=== PATIENT | male | born 1950 | race Caucasian/White ===

== ENCOUNTER 2017-04-03 10:39 | Outpatient (CLI) | payer BC, MEDICARE ==
[2017-05-05 15:56] LABS: TEST RESULT REPORT (())
== END 2017-04-03 23:59 ==
LOC: LAB.WCP 10:39
PROVIDERS: ATTEND Family Medicine
DX: R21 Rash and other nonspecific skin eruption (principal)
CPT/HCPCS: 81599; 87101; 87220

== ENCOUNTER 2017-05-08 11:09 | Outpatient (CLI) | payer MEDICARE ==
[2017-05-08 19:06] LABS: BASOPHILS % (AUTO) 0.2 %; EOSINOPHILS # (AUTO) 0.1 10^3/uL (0.0-0.7); HCT - HEMATOCRIT 42.8 % (42.0-52.0); HGB - HEMOGLOBIN 14.4 g/dL (14.0-18.0); LYMPHOCYTES # (AUTO) 2.4 10^3/uL (1.5-3.5); LYMPHOCYTES % (AUTO) 25.6 %; MEAN CORPUSCULAR HEMOGLOBIN 32.3 pg (27.0-31.0); MEAN CORPUSCULAR HGB CONC 33.6 g/dL (32.0-36.0); MEAN PLATELET VOLUME 7.2 fL (7.4-11.4); MONOCYTES # (AUTO) 0.6 10^3/uL (0.0-1.0); MONOCYTES % (AUTO) 6.5 %; NEUTROPHILS # (AUTO) 6.1 10^3/uL (1.5-6.6); NEUTROPHILS % (AUTO) 66.7 %; NUCLEATED RED BLOOD CELLS AUTO 0.1 /100WBC; RED BLOOD COUNT 4.46 10^6/uL (4.70-6.10); RED CELL DISTRIBUTION WIDTH 13.3 % (12.0-15.0); UNCORRECTED WHITE BLOOD COUNT 9.2 x10^3/uL; WHITE BLOOD COUNT 9.2 x10^3/uL (4.8-10.8)
[2017-05-08 19:21] LABS: ALBUMIN/GLOBULIN RATIO 1.5 (1.0-2.2); BILIRUBIN,TOTAL 0.5 mg/dL (0.2-1.0); BUN - BLOOD UREA NITROGEN 10 mg/dL (6-20); CALCIUM 9.5 mg/dL (8.5-10.3); CARBON DIOXIDE - CO2 30 mmol/L (21-32); CHLORIDE 94 mmol/L (101-111); CREATININE 0.8 mg/dL (0.6-1.2); GFR - MDRD 96 (>89); GLUCOSE 94 mg/dL (70-100); POTASSIUM 4.1 mmol/L (3.5-5.0); SODIUM 129 mmol/L (135-145); TOTAL PROTEIN 6.9 g/dL (6.7-8.2)
[2017-05-08 20:27] LABS: THYROID STIMULATING HORMONE < 0.08 uIU/mL (0.34-5.60)
== END 2017-05-08 11:10 | disposition home or self-care (01) ==
LOC: LAB.WCP 11:09
PROVIDERS: ATTEND Family Medicine
DX: E03.9 Hypothyroidism, unspecified (principal); L50.8 Other urticaria; R21 Rash and other nonspecific skin eruption
CPT/HCPCS: 36415; 80053; 84439; 84443; 85025

== ENCOUNTER 2017-06-26 08:00 | Outpatient (CLI) | payer MEDICARE ==
[2017-06-26 19:37] LABS: BUN - BLOOD UREA NITROGEN 7 mg/dL (6-20); CALCIUM 9.5 mg/dL (8.5-10.3); CARBON DIOXIDE - CO2 28 mmol/L (21-32); CHLORIDE 94 mmol/L (101-111); CREATININE 0.8 mg/dL (0.6-1.2); GFR - MDRD 96 (>89); GLUCOSE 90 mg/dL (70-100); POTASSIUM 4.6 mmol/L (3.5-5.0); SODIUM 130 mmol/L (135-145)
[2017-06-26 20:12] LABS: THYROID STIMULATING HORMONE 0.12 uIU/mL (0.34-5.60)
== END 2017-06-26 08:01 | disposition home or self-care (01) ==
LOC: LAB.WCP 08:00
PROVIDERS: ATTEND Family Medicine
DX: E87.1 Hypo-osmolality and hyponatremia (principal); E03.9 Hypothyroidism, unspecified
CPT/HCPCS: 36415; 80048; 84439; 84443

== ENCOUNTER 2017-07-17 10:45 | Outpatient (CLI) | payer MEDICARE ==
--- NOTE | 2017-07-17 11:57 | CT Report ---
CT CHEST WITHOUT CONTRAST FOR LUNG CANCER SCREENIN07/17/2017 CLINICAL INDICATION: A 67-year-old asymptomatic patient with [id number] history of smoking, curren t smoker. COMPARISON: CT chest 04/12/2015. TECHNIQUE: Axial CT images of the chest were obtained without intravenous contrast, using low-dose s creening technique. In accordance with CT protocol optimization, one or more of the following dose reduction techniques w ere utilized for this exam: automated exposure control, adjustment of mA and/or KV based on patient size, or use of iterative reconstructive technique. FINDINGS: The heart and great vessels demonstrate mild atherosclerotic calcification. No hilar or m ediastinal lymphadenopathy is present. There is a 3-mm left apical nodule present, and a 4-mm nodule in the anterior right middle lobe (axial lung window images 23 and 94 respectively). These are stab le from previous. No effusion or pneumothorax is present. Limited evaluation of upper abdominal str uctures demonstrates normal adrenal glands. IMPRESSION: BENIGN FINDINGS. RECOMMENDATION: Continue annual screening with low-dose chest CT in 12 months. LUNG-RADS CATEGORY 2 - BENIGN APPEARANCE. JOB #: [id number] EXT JOB #:[id number]
== END 2017-07-17 10:46 | disposition home or self-care (01) ==
LOC: DI 10:45
PROVIDERS: ATTEND Family Medicine
DX: Z12.2 Encounter for screening for malignant neoplasm of respiratory organs (principal); F17.210 Nicotine dependence, cigarettes, uncomplicated

== ENCOUNTER 2017-09-03 11:10 | Outpatient (CLI) | payer MEDICARE ==
[2017-09-03 18:57] LABS: CALCIUM 9.3 mg/dL (8.5-10.3); CREATININE 0.9 mg/dL (0.6-1.2); POTASSIUM 4.5 mmol/L (3.5-5.0)
[2017-09-03 19:14] LABS: THYROID STIMULATING HORMONE 12.03 uIU/mL (0.34-5.60)
== END 2017-09-03 11:11 | disposition home or self-care (01) ==
LOC: LAB.WCP 11:10
PROVIDERS: ATTEND Family Medicine
DX: E87.1 Hypo-osmolality and hyponatremia (principal); E03.9 Hypothyroidism, unspecified
CPT/HCPCS: 36415; 80048; 84439; 84443

== ENCOUNTER 2017-10-13 08:00 | Outpatient (CLI) | payer MEDICARE | END 2017-10-13 08:01 | disposition home or self-care (01) | LOC: LAB.R 08:00 | PROVIDERS: ATTEND Family Medicine | DX: R19.7 Diarrhea, unspecified (principal) | CPT/HCPCS: 87045; 87046; 87177; 87209; 87493 ==

== ENCOUNTER 2018-01-11 11:37 | Day surgery (SDC) | payer MEDICARE ==
[2018-01-11] MEDS ORDERED: LACTATED RINGERS 1,000 ML IV ONE ×3 (12:01→14:00)
[2018-01-11] MEDS ORDERED: MIDAZOLAM 2 MG/2 ML VIAL IVP ONE (12:28)
[2018-01-11] MEDS ORDERED: fentaNYL 100 MCG/2 ML VIAL IVP ONE (12:28)
--- NOTE | 2018-01-11 12:31 | SURGERY HX AND PHYSICAL(T) ---
Surgical History & Physical - PMH/PSH/Social Hx Does the pt have a hx of MRSA?: No Eyes, Ears, Nose, Throat: None Cardiovascular: None Respiratory: COPD Skin: None Endocrine/Autoimmune: HyPOthyroidism Gastrointestinal: None Urinary: None Musculoskeletal: Osteoarthritis Psychiatric: None Orthopedic: Arthroscopic surgery Eyes Ears Nose Throat (EENT): Tonsil/Adenoidectomy - Home Meds and Allergies Home Medications: Levothyroxine [Synthroid] 125 mcg PO QDAC 01/08/18 hydrOXYzine HCl [Hydroxyzine HCl] 10 mg PO BID PRN 01/08/18 raNITIdine [Zantac] 150 mg PO DAILY PRN 01/08/18 Loratadine [Allergy] 1 BID 01/11/18 Allergies/Adverse Reactions: Allergies Allergy/AdvReac Type Severity Reaction Status Date / Time Sulfa (Sulfonamide Allergy Unknown Verified 01/08/18 13:37 Antibiotics) - Vital Signs Temperature: 36.3 C Respiratory Rate: 18 O2 Saturation: 98 Weight (kg): 63.9 kg Height: 1.68 m - Patient Review Patient Review: Problems were reviewed with the patient during this visit. Medications were reviewed with the patient during this visit. Allergies were reviewed this patient during this visit. Pertinent Tests Reviewed: All pertitent test for this patient were reviewed. - Assessment & Plan Assessment and Plan: The patient was initially seen on December 09, 2017 for the very same reason and for unknown reasons was scheduled more than 30 days later. Because of this an updated H&P is required. Dr. Gianluca Baird initially sent this very pleasant 67 year-old male to my office in consultation for a follow up on polyps. He describes his bowel movements as regular and normal. He denies nausea, vomiting, constipation, diarrhea, melena, hematochezia, hematemesis, abdominal pain, unexplained weight loss, or change in the color, character or caliber of his stool. His previous colonoscopy was performed November 24, [address] Marshall Andrew and 5 separate polyps were removed between 15 and 25 cm from the anal verge. Dr. Marshall Andrew did not make a habit of recording how much medication was used during the procedure. The polyps were all hyperplastic with one being benign colonic mucosa without pathologic change. Current Allergies: SULFA (Critical) Current Medications: SUPREP BOWEL PREP KIT 17.5-3.13-1.6 GM/180ML ORAL SOLUTION (NA SULFATE-K SULFATE -MG SULF) Take one (6oz) bottle by mouth the PM before colonoscopy & one (6oz) bottle by mouth the AM of colonoscopy as directed by surgical clinic LOMOTIL 2.5-0.025 MG ORAL TABLET (DIPHENOXYLATE-ATROPINE) Take one tablet by mouth now then one tablet every six hours as needed for diarrhea RANITIDINE HCL 150 MG ORAL TABLET (RANITIDINE HCL) take two tablet by mouth every evening MONTELUKAST SODIUM 10 MG ORAL TABLET (MONTELUKAST SODIUM) Take one tablet by mouth daily HYDROXYZINE HCL 25 MG ORAL TABLET (HYDROXYZINE HCL) Take one tablet by mouth three times daily as needed for itch LOTRISONE 1-0.05 % EXTERNAL CREAM (CLOTRIMAZOLE-BETAMETHASONE) Apply to affected area twice daily LEVOTHYROXINE SODIUM 125 MCG ORAL TABLET (LEVOTHYROXINE SODIUM) Take one tablet by mouth daily Past Medical History: Hypothyroidism Rash (ICD-782.1) (JAY05-V23) Lumbar radiculopathy, right (ICD-724.4) (EMG03-R92.16) Pulmonary nodule (ICD-518.89) (SEM11-Q88.4) COPD (ICD-496) (FVD53-C19.9) CHRONIC OBSTRUCTIVE PULMONARY DISEASE, ACUTE EXACERBATION (ICD-491.21) ( HAL52-H61.1) DEGENERATIVE JOINT DISEASE, LEFT KNEE (ICD-715.96) (NDZ03-W33.9) DYSLIPIDEMIA (ICD-272.9) (YEW33-E53.9) RETINAL HEMORRHAGE (ICD-362.81) (MZF74-F69.60) ERECTILE DYSFUNCTION (ICD-302.72) (ZRU45-B02.21) TOBACCO ABUSE (ICD-305.1) (TKG01-W05.200) Current Problems: Skin lesion, abnormal (ICD-709.9) (EDC01-E24.9) Rash (ICD-782.1) (KOX41-X35) Lumbar radiculopathy, right (ICD-724.4) (ZAK79-S30.16) Pulmonary nodule (ICD-518.89) (HJR95-I04.4) COPD (ICD-496) (QXW13-L41.9) CHRONIC OBSTRUCTIVE PULMONARY DISEASE, ACUTE EXACERBATION (ICD-491.21) ( TBS62-S40.1) HYPOTHYROIDISM NOS (ICD-244.9) (ZFD06-B00.9) DEGENERATIVE JOINT DISEASE, LEFT KNEE (ICD-715.96) (UBM46-P38.9) DYSLIPIDEMIA (ICD-272.9) (WUH91-X63.9) RETINAL HEMORRHAGE (ICD-362.81) (ZSK14-J24.60) ERECTILE DYSFUNCTION (ICD-302.72) (DDQ35-C50.21) TOBACCO ABUSE (ICD-305.1) (VUA40-P75.200) Shortness of Breath Emphysema Past Surgical History: Knee Surgery Family History Summary: Father (biol.) - Has a father - Entered On: 03/22/2015 General Comments - FH: Mother, sister: Crohn's disease. No colon cancer. Father: 83, AD, assisted living, heart dis, DM Mother: age 67, colon cancer, unknown blood disorder Siblings: 2 sisters, 1 brother Risk Factors: Smoked Tobacco Use: Current every day smoker Cigarettes: Yes -- 1 pack(s) per day, Counseled to quit/cut down: yes Drug use: no Alcohol use: yes Drinks per day: 2-3 Exercise: yes Times per week: 3-5 Type of Exercise: Work Previous Tobacco Use: Signed On - 10/09/2017 Smoked Tobacco Use: Former smoker Cigarettes: Yes -- 1 1/2 pack(s) per day, Year started: less then a pack a day Years smoked: 45 Year quit: 2014 Years Since Last Quit: 3 years, 2 months, 24 days Cigars: Yes Smokeless Tobacco Use: Never Passive smoke exposure: no Drug use: no HIV high-risk behavior: no Caffeine use: 4 drinks per day Review of Systems CONSTITUTIONAL: No weight loss, fever, chills, weakness or fatigue. HEENT: Eyes: No visual loss, blurred vision, double vision or yellow sclerae. Ears, Nose, Throat: No hearing loss, sneezing, congestion, runny nose or sore throat. SKIN: No rash or itching. CARDIOVASCULAR: No chest pain, chest pressure or chest discomfort. No palpitations or edema. RESPIRATORY: No shortness of breath, cough or sputum. GASTROINTESTINAL: No anorexia, nausea, vomiting or diarrhea. No abdominal pain or blood. GENITOURINARY: No dysuria. POSITIVE impotence. NEUROLOGICAL: No headache, dizziness, syncope, paralysis, ataxia, numbness or tingling in the extremities. No change in bowel or bladder control. MUSCULOSKELETAL: No muscle, back pain, joint pain or stiffness. HEMATOLOGIC: No anemia, bleeding or bruising. LYMPHATICS: No enlarged nodes. No history of splenectomy. PSYCHIATRIC: No history of depression or anxiety. ENDOCRINOLOGIC: No reports of sweating, cold or heat intolerance. No polyuria or polydipsia. ALLERGIES: No history of asthma, hives, eczema or rhinitis. Physical Exam General: 67-year old male, appears stated age, well developed, well nourished, evaluated in Room 4 at [facility] ambulatory surgery department HEENT: Normocephalic, atraumatic, extraocular movement intact, mucous membranes pink and moist, sclera anicteric and not injected, graying hair Neck: Supple without pain on palpation, mass or bruit Cardiac: Regular rate and rhythm without rub, gallop, or murmur Chest: Clear to auscultation bilaterally Abdomen: Soft, nontender, normoactive bowel sounds, no hepatomegaly, no splenomegaly Genitourinary: Deferred Rectal: Deferred until colonoscopy Extremities: No gross neurovascular problem, no clubbing, cyanosis or edema Gait: No gross motor deficit Psychiatric: Alert and oriented to person place and time, asks and answers questions appropriately, mood and affect appropriate Impression & Recommendations: Screening colonoscopy with possible biopsies and/or polypectomies. Indications , procedure, alternatives (such as barium enema, Cologuard and even no procedure at all) and risks including but not limited to perforation requiring operative repair, bleeding with its risks, and were fully explained to him. In the office, I sophia diagrams explaining the colonic anatomy and the proposed procedure and handed it to him. In the office, conscious sedation was discussed at length with him as were its risks including but not limited to loss of airway, aspiration, respiratory depression, and not enough relief of pain and anxiety and he indicated that he wished to have conscious sedation for his procedure. In the office, I explained that MAC anesthesia is associated with a higher incidence of colon perforation. Review of his history does not reveal any significant systemic disease that would contraindicate use of conscious sedation or MAC anesthesia. All questions were fully answered. Verbal and written consent was obtained. The patient in preparation for his colonoscopy has been n.p.o. and his colon has been mechanically prepped. 20 minutes of [id number] time spent with the patient the majority of which was spent in discussion and in the generation of this document
[2018-01-11 14:03] VITALS: BP 120/78
== END 2018-01-11 11:38 | disposition home or self-care (01) ==
LOC: SDS 11:37
PROVIDERS: ATTEND Surgery
PROC: 0DBL8ZX Excision of Transverse Colon, Via Natural or Artificial Opening Endoscopic, Diagnostic (ICD-10-PCS; principal; 2018-01-11 12:45)
DX: Z12.11 Encounter for screening for malignant neoplasm of colon (principal); D12.3 Benign neoplasm of transverse colon; K64.8 Other hemorrhoids; E03.9 Hypothyroidism, unspecified; J44.9 Chronic obstructive pulmonary disease, unspecified; E78.5 Hyperlipidemia, unspecified; Z87.891 Personal history of nicotine dependence
CPT/HCPCS: 45385; J7120

== ENCOUNTER 2019-04-28 08:00 | Outpatient (CLI) | payer MEDICARE ==
[2019-04-28 12:32] LABS: BASOPHILS # (AUTO) 0.1 10^3/uL (0.0-0.1); BASOPHILS % (AUTO) 1.1 %; EOSINOPHILS # (AUTO) 0.5 10^3/uL (0.0-0.7); EOSINOPHILS % (AUTO) 5.9 %; LYMPHOCYTES # (AUTO) 1.9 10^3/uL (1.5-3.5); LYMPHOCYTES % (AUTO) 21.6 %; MEAN CORPUSCULAR HEMOGLOBIN 33.3 pg (27.0-31.0); MEAN CORPUSCULAR HGB CONC 34.3 g/dL (32.0-36.0); MEAN CORPUSCULAR VOLUME 97.1 fL (80.0-94.0); MONOCYTES # (AUTO) 0.7 10^3/uL (0.0-1.0); MONOCYTES % (AUTO) 8.1 %; NEUTROPHILS # (AUTO) 5.6 10^3/uL (1.5-6.6); NEUTROPHILS % (AUTO) 62.9 %; PLT - PLATELET COUNT 320 10^3/uL (130-450); RED CELL DISTRIBUTION WIDTH 12.3 % (12.0-15.0)
[2019-04-28 12:42] LABS: ALBUMIN 4.6 g/dL (3.2-5.5); ALBUMIN/GLOBULIN RATIO 1.5 (1.0-2.2); ALKALINE PHOSPHATASE 50 IU/L (42-121); ALT ALANINE AMINOTRANSFERASE 18 IU/L (10-60); AST ASPARTATE AMINOTRANSFERASE 30 IU/L (10-42); BILIRUBIN,TOTAL 0.4 mg/dL (0.2-1.0); BUN - BLOOD UREA NITROGEN 8 mg/dL (6-20); CALCIUM 9.5 mg/dL (8.5-10.3); CARBON DIOXIDE - CO2 26 mmol/L (21-32); CHLORIDE 93 mmol/L (101-111); CHOL/HDL RATIO 2.5 (<5.0); CHOLESTEROL 210 mg/dL; CREATININE 0.7 mg/dL (0.6-1.2); GFR - MDRD 112 (>89); GLUCOSE 104 mg/dL (70-100); HDL CHOLESTEROL 83 mg/dL; LDL CHOLESTEROL,CALCULATED 111 mg/dL; LDL/HDL RATIO 1.3 (<3.6); SODIUM 131 mmol/L (135-145); TOTAL PROTEIN 7.6 g/dL (6.7-8.2); VLDL CHOLESTEROL 16 mg/dL
== END 2019-04-28 23:59 | disposition home or self-care (01) ==
LOC: LAB.WCP 08:00
PROVIDERS: ATTEND Family Medicine
DX: E87.1 Hypo-osmolality and hyponatremia (principal); E78.5 Hyperlipidemia, unspecified; E03.9 Hypothyroidism, unspecified
CPT/HCPCS: 36415; 80053; 80061; 83721; 84443; 85025

== ENCOUNTER 2019-05-09 08:39 | Emergency (ER) | payer MEDICARE ==
[2019-05-09] MEDS ORDERED: ACETAMINOPHEN 325 MG TABLET PO STA (09:02)
--- NOTE | 2019-05-09 09:04 | ED Physician Documentation ---
PD HPI CHEST PAIN - Stated complaint Stated Complaint: GLF/SOA - Chief complaint Chief Complaint: Resp - History obtained from History obtained from: Patient - History of Present Illness Timing - onset: Other (3 days ago he was moving a piece of furniture at home, it was a recliner on a hand truck. He fell backwards in the handle of the hand truck hit his right upper chest wall and he has increasing pain there. He fell down onto his rear end but does not have any pain there. Since Thursday he said increasing pain and some shortness of breath. There is no cough. Pain is worse with deep breathing.) Review of Systems Constitutional: denies: Fever, Chills Cardiac: denies: Palpitations, Pedal edema, Calf pain Respiratory: denies: Cough, Hemoptysis, Wheezing GI: denies: Abdominal Pain PD PAST MEDICAL HISTORY - Past Medical History Past Medical History: Yes Cardiovascular: None Respiratory: COPD Endocrine/Autoimmune: HyPOthyroidism GI: None : None HEENT: None Psych: None Musculoskeletal: Osteoarthritis Derm: None - Past Surgical History Ortho: Arthroscopic surgery HEENT: Tonsil/Adenoidectomy - Present Medications Home Medications: Ambulatory Orders Medication Instructions Recorded Confirmed Levothyroxine [Synthroid] 125 mcg PO QDAC 01/08/18 01/11/18 hydrOXYzine HCl [Hydroxyzine HCl] 10 mg PO BID PRN 01/08/18 01/11/18 raNITIdine [Zantac] 150 mg PO DAILY PRN 01/08/18 01/11/18 Loratadine [Allergy] 1 BID 01/11/18 Hydrocodone/Acetaminophen 1 - 2 each PO Q6H PRN #14 tablet 05/09/19 [Hydrocodon-Acetaminophen 5-325] - Allergies Allergies/Adverse Reactions: Allergies Allergy/AdvReac Type Severity Reaction Status Date / Time Sulfa (Sulfonamide Allergy Unknown Verified 05/09/19 08:53 Antibiotics) - Social History Does the pt smoke?: Yes Smoking Status: Current every day smoker PD ED PE NORMAL - Vitals Vital signs reviewed: Yes - General General: Alert and oriented X 3, No acute distress - Neck Neck: Supple, no meningeal sign, No bony TTP - Cardiac Cardiac: RRR, No murmur - Respiratory Respiratory: No respiratory distress, Clear bilaterally, Other (Tender inferior to the clavicle right midclavicular line. No deformity or ecchymosis there.) - Abdomen Abdomen: Non tender - Extremities Extremities: No edema, No calf tenderness / cord - Neuro Neuro: Alert and oriented X 3, Normal speech Results - Vitals Vitals: Vital Signs - 24 hr 05/09/19 08:48 Temperature 36.6 C Heart Rate 86 Respiratory 20 Rate Blood Pressure 156/81 H O2 Saturation 100 Oxygen O2 Source Room air - EKG (time done) 0856 Rate: Rate (enter#) (79) Rhythm: NSR [place]: Normal Intervals: Normal UT QRS: Normal Ischemia: Normal ST segments Computer interpretation: Agree with computer - Rads (name of study) R ribs and chest Radiology: EMP read contemporaneously (NAD) PD MEDICAL DECISION MAKING - ED course ED course: 69-year-old gentleman with a chest wall injury a few days ago, negative imaging but discussed that plain films can miss nondisplaced fractures, he needed some pain medication for nighttime use. He has upcoming cataract surgery and understands to avoid NSAIDs but the Tylenol is okay. Departure - Departure Disposition: 01 Home, Self Care Clinical Impression: Chest wall contusion Qualifiers: Encounter type: initial encounter Laterality: right Qualified Code(s): S20.211A - Contusion of right front wall of thorax, initial encounter Condition: Good Record reviewed to determine appropriate education?: Yes Instructions: ED Contusion Chest Wall Prescriptions: Hydrocodone/Acetaminophen [Hydrocodon-Acetaminophen 5-325] 1 - 2 each PO Q6H PRN #14 tablet PRN Reason: pain Comments: Tylenol as needed for pain given your upcoming cataract surgery avoid nonsteroidal anti-inflammatory drugs such as ibuprofen, Motrin, Aleve. Return for new or worsening symptoms. Follow-up with your doctor in 1 week. Your blood pressure was elevated today on check into the emergency department. This does not mean that you have hypertension, it is a common phenomenon to come to the emergency department and have elevated blood pressure. I recommend that you see your primary care physician within the week to have it rechecked when you are feeling better.
--- NOTE | 2019-05-09 09:48 | XRAY Report ---
Reason: R upper rib pain, injury Procedure Date: 05/09/2019 Accession Number: [id number] / [id number] Procedure: XR - Ribs w/PA Chest RT CPT Code: FULL RESULT: EXAM: RIGHT RIB RADIOGRAPHY EXAM DATE: 05/09/2019 09:25 AM. CLINICAL HISTORY: Right upper rib pain following a fall on 05/06/2019. COMPARISON: CHEST 2 VIEW PA/LAT 04/15/2018 2:12 PM. TECHNIQUE: 1 view of the chest and 2 views of the ribs. FINDINGS: Bones: No osseous abnormalities identified in the region marked with a BB. No fracture or bone lesion. Lungs: No focal opacities. No pneumothorax. No pleural effusions. Mediastinum: Heart and mediastinal contours are unremarkable. Other: None. IMPRESSION: No displaced fracture is identified. RADIA
[2019-05-09 10:00] VITALS: BP 159/92
== END 2019-05-09 10:00 | disposition home or self-care (01) ==
LOC: ED 08:39
DX: S20.211A Contusion of right front wall of thorax, initial encounter (principal); W18.30XA Fall on same level, unspecified, initial encounter; W22.8XXA Striking against or struck by other objects, initial encounter; Y93.89 Activity, other specified; Y92.009 Unspecified place in unspecified non-institutional (private) residence as the place of occurrence of the external cause; R03.0 Elevated blood-pressure reading, without diagnosis of hypertension; F17.200 Nicotine dependence, unspecified, uncomplicated
CPT/HCPCS: 71101; 93005; 99283; 99284; A9270

== ENCOUNTER 2019-05-24 10:48 | Outpatient (CLI) | payer MEDICARE ==
--- NOTE | 2019-05-26 10:06 | CT Report ---
Reason: TOBACCO ABUSE Procedure Date: 05/24/2019 Accession Number: [id number] / [id number] Procedure: CT - Low Dose Lung Cancer Screen CPT Code: FULL RESULT: EXAM CT LUNG SCREEN EXAM DATE: 05/24/2019 10:57 AM. HISTORY: 69-year-old patient with [id number] smoking history. Currently smoking: Yes. COMPARISON: CHEST SCREEN LOW DOSE W/O 07/17/2017 10:54 AM. TECHNIQUE: CT examination of the entire thorax without contrast was performed using low-dose technique. Thin section coronal, axial, sagittal and MIP axial images were obtained. In accordance with CT protocol optimization, one or more of the following dose reduction techniques were utilized for this exam: automated exposure control, adjustment of mA and/or KV based on patient size, or use of iterative reconstructive technique. FINDINGS: Nodules: Right upper lobe: 2 mm nodule image 40 series 4, 2 mm nodule image 50. Right middle lobe: Stable triangular accessory fissure based nodule measuring approximately 4 x 6 mm, image 100. Right lower lobe: 2 mm nodule image 79, triangular fissure based 5 x 3 mm nodule image 104, 2 mm nodule image 123. Left upper lobe: Stable 3 mm nodule image 30. Left lower lobe: Nonsolid 0.8 x 1.0 cm perifissural nodule image 76. Emphysema: Minimal. Pleura: Unremarkable. Aorta: Moderately atherosclerotic. Mediastinum: Unremarkable. Coronary calcifications: Moderate 3 vessel. Other pulmonary findings: Mild amount of scarring or atelectasis in the lingula and middle lobe on the right anteriorly. Other extrapulmonary findings: None. IMPRESSION: Lung-RADS ASSESSMENT CATEGORY: 2 - benign appearance or behavior. Probability of malignancy: Less than 1%. RECOMMENDATION: Continue annual low-dose chest CT. RADIA
== END 2019-05-24 10:49 | disposition home or self-care (01) ==
LOC: DI 10:48
PROVIDERS: ATTEND Family Medicine
DX: Z12.2 Encounter for screening for malignant neoplasm of respiratory organs (principal); F17.210 Nicotine dependence, cigarettes, uncomplicated

== ENCOUNTER 2019-07-21 23:59 | Outpatient (CLI) | payer MEDICARE | END 2019-07-22 | disposition short-term general hospital (02) | LOC: EMS 23:59 | PROVIDERS: ATTEND Surgery | DX: R55 Syncope and collapse (principal); R32 Unspecified urinary incontinence | CPT/HCPCS: A0425; A0429; A0888 ==